=== PATIENT | male | born 1970 | race Caucasian/White ===

== ENCOUNTER 2019-07-24 08:38 | Observation (INO) | payer MEDICARE, OTHER ==
[~2019-07-24] VITALS: Ht 188 cm; Wt 64.5 kg
[2019-07-24 15:50] LABS: Calcium, Ionized (POC) 1.17 mmol/L (1.10-1.46); Chloride (POC) 93 mmol/L (98-108); Creatinine (POC) 4.2 mg/dL (0.8-1.3); Glucose (ISTAT POC) 106 mg/dL (70-99); Hemoglobin (POC) 15.3 g/dL (13.5-17.5); Potassium (POC) 3.5 mmol/L (3.5-5.5); Sodium (POC) 130 mmol/L (135-148); Total CO2 (POC) 29 mmol/L (21-32)
--- NOTE | 2019-07-24 18:40 | NUR ---
PT TO RECOVERY ROOM POST PROCEDURE IN RECLINER. PT IS AWAKE AND CONVERSING, REPORTS HE IS COMFORTABLE. MONITOR SR 80'S, B/P 160/77, AFEBRILE, SPO2 99-100% RA. L UPPER ARM FISTULA: POSITIVE THRILL, NO SWELLING/HEMATOMA, PURSE STRINGS AND TEGADERM INTACT.
--- NOTE | 2019-07-24 19:31 | NUR ---
DR HALE HERE TO EVALUATE PT.
[2019-07-24 21:42] LABS: Mean Platelet Volume 9.2 fL (9.1-12.4); Platelet Count 211 K/mm3 (150-400)
[2019-07-24 21:57] LABS: International Normalized Ratio 0.97; Prothrombin Time Results 10.3 Sec (9.7-11.5)
--- NOTE | 2019-07-24 23:45 | NUR ---
DIRECT ADMISSION /HEPARIN GTT/SUTURES. PT DIRECT ADMIT HIS SHIFT TODAY AT 1945 FROM [facility]. PT HAD SOME CLOTTING IN HIS LEFT FISULA THAT WAS CLEANED OUT AND STENTED BY DR. JERRY. DR. JERRY AT BEDSIDE THIS SHIFT SHORTLY AFTER PT ARRIVED TO THE UNIT. RECEIVED VERBAL ORDER FROM DR. JERRY TO REMOVE STICHES TO LISS FISTULA, AND TO START HEPARIN DRIP. STICHES WERE REMOVED BY [facility] NURSE. HEPARIN GTT WAS LATE TO START DUE TO DIFFICULTIES OBTAINING BLOOD TO CHECK HIS LEVELS. TWO LAB TECHS ATTEMPTED TO DRAW PT BLOOD, ON THE SECOND ATTEMPT BLOOD WAS COLLECTED BUT CLOTTED, THUS THE SAMPLE COULD NOT BE RAN. OZIEL LEE CLINICAL COORDINATOR NOTIFIED. SHE JEET PT BLOOD FROM THE 20G IV IN HIS ARM, AND SAMPLE WAS SENT. WHEN RESULTS RETURNED HEPARIN WAS SENT AND INITIATED. ADMISSION AND ASSESSMENT COMPLETE. FISTULA WITH PALPABLE STRONG PULSE TO LISS. PT DENIES ANY N/T IN LEFT ARM. PLAN IS HEAPRIN GTT AND DIALYSIS TOMORROW. MED REC IS INCOMPLETE AT THIS TIME. PT HAS NO MEDICATION LIST AND DOES NOT KNOW WHAT HE TAKES. HE STATES A LIST SHOULD HAVE BEEN FAXED TO THE ER. I CALLED TO CHECK IF THEY HAD LIST AND THEY DID NOT. WILL NOTIFY FRANTZ RN FOR FOLLOW UP. -
--- NOTE | 2019-07-25 04:45 | NUR ---
LAB DRAW REFUSAL FOR HEPARIN GTT PT REFUSING LAB DRAWS FOR HEPARIN GTT AND STATES HE DOES NOT WANT TO BE POKED ANYMORE. PHARMACY NOTIFIED OF PT REFUSAL AND STATES OK TO KEEP HEPARIN GTT GOING UNTIL 0600. CALL PLACED TO DR. ÁNGEL JERRY TO NOTIFY, AWAITING CALL BACK AT THIS TIME.
--- NOTE | 2019-07-25 05:03 | NUR ---
SHIFT SUMMARY PT ER ADMIT THIS SHIFT. PT A/OX4, INDEPENDENT AND AMBULATORY IN THE ROOM. VITALS STABLE. PT IS IRRITABLE AND HAS BEEN REFUSING ASPECTS OF PT CARE. HEPARIN GTT INITIATED PER ORDERS, PT IS A DIFFICULT START AND IS NOW REFUSING TO HAVE HIS LABS DRAWN THIS AM TO MONITOR HIS LEVELS FOR GTT. CALL PLACED TO DR. JERRY ANS SERVICE TO NOTIFY HIM OF PT REFUSAL, AWAITING A CALL BACK AT THIS TIME. PHARMACY NOTIFED OF PT REFUSAL FOR LABS. ABBY ERNST PHARMACIST STATES IT WILL BE OK TO KEEP GTT GOING UNTIL 0600, BUT TO DC AFTER. PLAN IS FOR HD TODAY AND THEN DISCHARGE. ADMISSION COMPLETE WITH THE EXCEPTION OF MEDS. BED IN LOWEST POSITION, CALL LIGHT WITHIN REACH. WILL CONTINUE TO MONITOR AND REPORT TO ONCOMING RN.
--- NOTE | 2019-07-25 06:07 | NUR ---
HEPARIN GTT NO CALL BACK FROM DR. JERRY AT THIS TIME. SPOKE WITH PHARMACIST ABBY ERNST, WHO STATES OK TO LEAVE HEAPRIN GTT GOING UNTIL WE HEAR FROM DR. JERRY REGARDING PT REFUSAL FOR LAB DRAWS.
--- NOTE | 2019-07-25 07:07 | NUR ---
HEPARIN GTT DR. JERRY DID NOT RETURN MY CALL. PER PHARMACY CONTINUE HEPARIN GTT. FRANTZ DEGROOT NOTIFIED OF HEPARIN GTT INFUSING AND WILL FOLLOW UP WITH ÁNGEL JERRY AND PHARMACY REGARDING THIS.
[2019-07-25 09:32] LABS: Hematocrit 35.9 % (37.0-53.0); Hemoglobin 12.4 g/dL (13.5-17.5); Mean Corpuscular HGB 30.2 pg (26.0-34.0); Mean Corpuscular HGB Conc 34.5 g/dL (31.5-36.5); Mean Corpuscular Volume 88 fL (80-100); Mean Platelet Volume 9.9 fL (9.1-12.4); Platelet Count 248 K/mm3 (150-400); RDW Coefficient Variation 14.2 % (11.7-14.2); RDW Standard Deviation 45.1 fL (35.1-46.3); White Blood Cell Count 7.76 K/mm3 (4.00-11.30)
[2019-07-25 09:47] LABS: Albumin, Blood 2.9 g/dL (3.4-5.0); Anion Gap 11 mmol/L (6-16); Blood Urea Nitrogen 36 mg/dL (8-24); Bun/Creatinine Ratio 7.5 (12.0-20.0); CO2, Blood 23 mmol/L (21-32); Calcium, Blood 8.8 mg/dL (8.5-10.1); Chloride, Blood 97 mmol/L (98-108); Creatinine, Blood 4.78 mg/dL (0.60-1.20); Glomerular Filtration Rate 14 (60-); Glucose, Blood 137 mg/dL (70-99); Magnesium, Blood 2.3 mg/dL (1.6-2.4); Potassium, Blood 3.9 mmol/L (3.5-5.5); Sodium, Blood 131 mmol/L (136-145)
[2019-07-25] MEDS ORDERED: ACET325 PO (11:15)
[2019-07-25] MEDS ORDERED: HUMALOG KW200 UNIT/1 SC (11:18)
[2019-07-25] MEDS ORDERED: MELA3 PO (11:19)
[2019-07-25] MEDS ORDERED: ONDA4ODT MM (11:20)
--- NOTE | 2019-07-25 12:13 | NUR ---
PT DISCHARGED TO HOME. PT INDEPENDENT IN ROOM PRIOR TO DISCHARGE. PT PROVIDED WITH DISCHARGE INSTRUCTIONS AND MEDICATION EDUCATION. PT VERBALIZED UNDERSTANDING. IV REMOVED PRIOR TO PT DISCHARGE. BLOOD GLUCOSE CHECKED PRIOR TO PT DISCHARGE, 110. PT AMBULATED OFF UNIT, DENYING NEED FOR WHEELCHAIR.
== END 2019-07-25 12:05 | disposition home or self-care (01) ==
LOC: ER 08:38 → SURS 08:39 → MEDS 08:39 → ENPENDDIS 07-25 10:19 → MEDS 07-25 12:05
PROVIDERS: Physician Assistant; Radiology Diagnostic Radiology; ADMIT Family Medicine
DX: T82.590A Other mechanical complication of surgically created arteriovenous fistula, initial encounter (principal); E11.22 Type 2 diabetes mellitus with diabetic chronic kidney disease; N18.6 End stage renal disease; R51 Headache; F12.20 Cannabis dependence, uncomplicated; E11.43 Type 2 diabetes mellitus with diabetic autonomic (poly)neuropathy; K31.84 Gastroparesis; Z99.2 Dependence on renal dialysis; Z87.891 Personal history of nicotine dependence
CPT/HCPCS: 36415; 36906; 80047; 80069; 82947; 83036; 83735; 85014; 85027; 85049; 85610; 85730; 93990; 96374; 99152; 99153; 99284-25; C1725; C1769; C1876; C1894; G0257; G0378; J1644; J2250; J3010; J7030; J7040; Q9967

== ENCOUNTER 2019-08-18 11:00 | Day surgery (SDC) | payer MEDICARE, OTHER ==
[~2019-08-18] VITALS: Ht 182.9 cm; Wt 66.8 kg
[~2019-08-18 11:00] MED LIST: ACET325 PO; HUMALOG KW200 UNIT/1 SC; MELA3 PO; ONDA4ODT MM
[2019-08-18] MEDS ORDERED: CLOP75 PO (11:47)
[2019-08-18] MEDS ORDERED: FURO20 PO (11:48)
[2019-08-18] MEDS ORDERED: SERT25 PO (11:48)
[2019-08-18] MEDS ORDERED: INSULANPEN SC (11:49)
--- NOTE | 2019-08-18 15:30 | NUR ---
PT REPORTS FEELING SHAKEY. CBG WAS 48. PT GIVEN GRAMCRACKERS, CHEESE AND TWO ORANGE JUCIES. PT REEVALUATED AFTER 15MINS. PT STATES THAT HE IS FEELING MUCH BETTER. CBG RECHECKED- WAS 50. PT DRANK ONE MORE ORANGE JUICE. PT STATES THAT HE IS READY TO BE DCD TO GO TO DIALYSIS. PT EDUCATED ON TALKING WITH RN AT [facility]. PT AGREES WITH PLAN. PT ALSO STATES HE WILL PICK SOMETHING UP TO EAT ON HIS WAY TO [facility]. PT APPEARS TO BE IN NO ACUTE DISTRESS AND IS WELL EDUCATED ON HIS SUGAR LEVELS.
--- NOTE | 2019-08-18 15:45 | NUR ---
PT AMBULATES TO RESTROOM WITH NO COMPLICATIONS. IV DCD WITH CATH IN TACT. PT TO GO STRAIGHT TO [facility] FROM RECOVERY ROOM. NEW STENT PLACED IN FISTULA. PT REMINDED TO KEEP TAKING PLAVIX EVERY DAY. PT STATES HIS UNDERSTANDING AND REPORTS THAT HE WILL TAKE HIS PLAVIX. PT IS GOING TO HAVE HIS PURSE SUTURES REMOVED AT DR. Barclay OFFICE ON SUNDAY. PT DENIES ANY QUESTIONS OR CONCERNS UPON DISCHARGE. PT TAKEN TO HIS RIDE VIA WHEELCHAIR BY RN.
== END 2019-08-18 15:45 | disposition home or self-care (01) ==
LOC: MHTC 11:00
DX: T82.868A Thrombosis due to vascular prosthetic devices, implants and grafts, initial encounter (principal); E10.22 Type 1 diabetes mellitus with diabetic chronic kidney disease; N18.6 End stage renal disease; Z87.891 Personal history of nicotine dependence; Y83.2 Surgical operation with anastomosis, bypass or graft as the cause of abnormal reaction of the patient, or of later complication, without mention of misadventure at the time of the procedure; Z79.02 Long term (current) use of antithrombotics/antiplatelets; Z99.2 Dependence on renal dialysis
CPT/HCPCS: 82947; 99152; 99153; C1725; C1769; C1876; C1887; C1894; J1644; J2250; J2997; J3010; J7030; Q9967

== ENCOUNTER 2021-11-10 18:26 | Emergency (ER) | payer MEDICARE, OTHER ==
[~2021-11-10] VITALS: Ht 188 cm; Wt 63.0 kg
[~2021-11-10 18:26] MED LIST changes: +CLOP75 PO; +FURO20 PO; +INSULANPEN SC; +SERT25 PO
[2021-11-10 19:12] LABS: BASOPHILS ABSOLUTE AUTO 0.09 K/mm3 (0.00-0.23); BASOPHILS PERCENT AUTO 1 % (0-2); EOSINOPHILS ABSOLUTE AUTO 0.08 K/mm3 (0.00-0.68); EOSINOPHILS PERCENT AUTO 1 % (0-6); Hematocrit 41.6 % (37.0-53.0); Hemoglobin 14.2 g/dL (13.5-17.5); IMMATURE GRAN ABSOLUTE AUTO 0.03 K/mm3 (0.00-0.10); IMMATURE GRAN PERCENT AUTO 0 % (0-1); LYMPHOCYTES ABSOLUTE AUTO 0.68 K/mm3 (0.84-5.20); LYMPHOCYTES PERCENT AUTO 8 % (21-46); MONOCYTES ABSOLUTE AUTO 0.35 K/mm3 (0.16-1.47); MONOCYTES PERCENT AUTO 4 % (4-13); Mean Corpuscular HGB 29.2 pg (26.0-34.0); Mean Corpuscular HGB Conc 34.1 g/dL (31.5-36.5); Mean Corpuscular Volume 86 fL (80-100); Mean Platelet Volume 10.7 fL (9.1-12.4); NEUTROPHILS ABSOLUTE AUTO 6.99 K/mm3 (1.96-9.15); NEUTROPHILS PERCENT AUTO 85 % (41-73); Platelet Count 238 K/mm3 (150-400); RDW Coefficient Variation 13.9 % (11.7-14.2); RDW Standard Deviation 43.6 fL (35.1-46.3); Red Blood Cell Count 4.86 M/mm3 (4.30-5.90); White Blood Cell Count 8.22 K/mm3 (4.00-11.30)
[2021-11-10 19:19] LABS: Albumin, Blood 3.8 g/dL (3.4-5.0); Bilirubin, Total 0.8 mg/dL (0.1-1.0); Bun/Creatinine Ratio 9.9 (12.0-20.0); Calcium, Blood 8.9 mg/dL (8.5-10.1); Creatinine, Blood 5.78 mg/dL (0.60-1.20); Potassium, Blood 3.4 mmol/L (3.5-5.5); Total Protein, Blood 7.8 g/dL (6.4-8.2)
== END 2021-11-10 22:27 | disposition home or self-care (01) ==
LOC: ER 18:26
PROVIDERS: Physician Assistant
DX: K31.84 Gastroparesis (principal); E10.22 Type 1 diabetes mellitus with diabetic chronic kidney disease; N18.9 Chronic kidney disease, unspecified; Z79.4 Long term (current) use of insulin; Z79.899 Other long term (current) drug therapy
CPT/HCPCS: 36415; 80053; 83690; 85025; 96374; 96375; 99284-25; J1200; J1790; J2405; J7030

== ENCOUNTER 2021-12-02 00:21 | Day surgery (SDC) | payer MEDICARE, OTHER | END 2021-12-02 23:54 | disposition home or self-care (01) | LOC: WOUND 00:21 | DX: E10.621 Type 1 diabetes mellitus with foot ulcer (principal); L97.522 Non-pressure chronic ulcer of other part of left foot with fat layer exposed; L97.512 Non-pressure chronic ulcer of other part of right foot with fat layer exposed; E10.622 Type 1 diabetes mellitus with other skin ulcer; L98.499 Non-pressure chronic ulcer of skin of other sites with unspecified severity; E10.59 Type 1 diabetes mellitus with other circulatory complications; E10.22 Type 1 diabetes mellitus with diabetic chronic kidney disease; N18.6 End stage renal disease; E10.40 Type 1 diabetes mellitus with diabetic neuropathy, unspecified; Z99.2 Dependence on renal dialysis; Z87.891 Personal history of nicotine dependence | CPT/HCPCS: A9270; G0463 ==

== ENCOUNTER 2021-12-20 04:57 | Day surgery (SDC) | payer MEDICARE, OTHER | END 2021-12-20 23:50 | disposition home or self-care (01) | LOC: WOUND 04:57 | DX: E10.621 Type 1 diabetes mellitus with foot ulcer (principal); L97.529 Non-pressure chronic ulcer of other part of left foot with unspecified severity; L97.519 Non-pressure chronic ulcer of other part of right foot with unspecified severity; Z99.2 Dependence on renal dialysis | CPT/HCPCS: G0463 ==

== ENCOUNTER 2022-07-13 15:08 | Observation (INO) | payer MEDICARE, OTHER ==
[~2022-07-13] VITALS: Ht 188 cm; Wt 67.3 kg
[2022-07-13 16:00] LABS: Hematocrit 42.5 % (37.0-53.0); Hemoglobin 13.9 g/dL (13.5-17.5); Mean Corpuscular HGB 29.1 pg (26.0-34.0); Mean Corpuscular HGB Conc 32.7 g/dL (31.5-36.5); Mean Corpuscular Volume 89 fL (80-100); Mean Platelet Volume 10.5 fL (9.1-12.4); Platelet Count 217 K/mm3 (150-400); RDW Coefficient Variation 15.3 % (11.7-14.2); RDW Standard Deviation 50.2 fL (35.1-46.3); Red Blood Cell Count 4.77 M/mm3 (4.30-5.90); White Blood Cell Count 20.19 K/mm3 (4.00-11.30)
[2022-07-13 16:04] LABS: Albumin, Blood 3.1 g/dL (3.4-5.0); Albumin/Globulin Ratio 0.8 (0.8-1.8); Bilirubin, Total 0.4 mg/dL (0.1-1.0); Bun/Creatinine Ratio 6.8 (12.0-20.0); Calcium, Blood 9.8 mg/dL (8.5-10.1); Creatinine, Blood 8.63 mg/dL (0.60-1.20); Globulin, Blood 3.8 g/dL (2.2-4.0); Potassium, Blood 3.9 mmol/L (3.5-5.5); Total Protein, Blood 6.9 g/dL (6.4-8.2)
[2022-07-13] MEDS ORDERED: MIRT15ST PO (16:04)
[2022-07-13] MEDS ORDERED: FURO80 PO (16:04)
[2022-07-13] MEDS ORDERED: METO10SY (16:05)
[2022-07-13] MEDS ORDERED: LOSA25 PO (16:06)
[2022-07-13] MEDS ORDERED: PRAV20 PO (16:06)
[2022-07-13 16:35] LABS: BAND PERCENT MAN 3 % (0-8); BASOPHILS PERCENT MAN 0 % (0-2); EOSINOPHILS ABSOLUTE MAN 2.22 K/mm3 (0.00-0.68); EOSINOPHILS PERCENT MAN 11 % (0-6); LYMPHOCYTES ABSOLUTE MAN 2.22 K/mm3 (0.84-5.20); LYMPHOCYTES PERCENT MAN 11 % (21-46); METAMYELOCYTE PERCENT MAN 1 % (0-0); MONOCYTES ABSOLUTE MAN 1.81 K/mm3 (0.16-1.47); MONOCYTES PERCENT MAN 9 % (4-13); MYELOCYTE PERCENT MAN 1 % (0-0); NEUTROPHILS ABSOLUTE MAN 13.52 K/mm3 (1.96-9.15); SEG NEUTROPHILS PERCENT MAN 64 % (41-73); TOTAL CELLS COUNTED 100
--- NOTE | 2022-07-13 20:30 | NUR ---
PT TRANSFERED TO ICU VIA BED WITH IV INSULIN AT 10ML/HR BY RN. PT ALERT ORIENTED AT THIS TIME. PT PIVOT TRANSFERRED TO ICU BED. PERSONAL BELONGINGS INCLUDE INSULIN PUMP WHICH IS NOT ON AT THIS TIME AND WALKER. PT HAS BOOT ON RIGHT FOOT AND WILL NOT LET RN UNDO DRESSING TO ASSESS. CALL LIGHT WITHIN REACH.
[2022-07-13 21:45] LABS: Bun/Creatinine Ratio 7.2 (12.0-20.0); Calcium, Blood 8.8 mg/dL (8.5-10.1); Creatinine, Blood 8.56 mg/dL (0.60-1.20); Potassium, Blood 4.2 mmol/L (3.5-5.5)
[2022-07-13 22:32] LABS: Source, Urine Clean Catch
[2022-07-13 22:34] LABS: Bilirubin, Urine Neg (Neg); Blood, Urine 1+ (Neg); Glucose Qualitative, Urine 4+ (Neg); Ketones, Urine 2+ (Neg); Leukocyte Esterase, Urine Neg (Neg); Nitrite, Urine Neg (Neg); Protein, Urine 3+ (Neg); Urobilinogen, Urine NORM (Normal)
[2022-07-13 22:48] LABS: Appearance, Urine Clear (Clear); Color, Urine Yellow (P-Yellow)
[2022-07-13 22:49] LABS: Amorphous Light (0-Heavy); Bacteria Rare /hpf; Red Blood Cells, Urine 0-2 /hpf (0-2); Squamous Epithelial Cells Rare /hpf (Few); White Blood Cells, Urine 0-2 /hpf (0-5)
[2022-07-14 04:10] LABS: Hematocrit 37.4 % (37.0-53.0)
[2022-07-14 04:39] LABS: Magnesium, Blood 2.9 mg/dL (1.6-2.4)
[2022-07-14 04:41] LABS: Albumin, Blood 2.4 g/dL (3.4-5.0); Albumin/Globulin Ratio 0.7 (0.8-1.8); Bilirubin, Total 0.5 mg/dL (0.1-1.0); Bun/Creatinine Ratio 7.4 (12.0-20.0); Calcium, Blood 8.7 mg/dL (8.5-10.1); Creatinine, Blood 8.67 mg/dL (0.60-1.20); Globulin, Blood 3.3 g/dL (2.2-4.0); Phosphorus, Blood 5.4 mg/dL (2.5-4.9); Potassium, Blood 4.1 mmol/L (3.5-5.5); Total Protein, Blood 5.7 g/dL (6.4-8.2)
--- NOTE | 2022-07-14 05:59 | NUR ---
PT ARRIVED TO ICU AT 2022. HOURLY GLUCOSE CHECKS, INSULIN OFF FROM 0100 TO 0545. INSULIN DRIP AT 1, D5 1/2NS AT 100ML/HR FOR A TOTAL OF 1.5L. DR. HALE CONSULTED LAST NIGHT AND UPDATED AGAIN THIS MORNING WITH MOST RECENT LABS. PT HAS R FOOT WOUND/BOOT AND WOULD NOT LET RN UNDO DRESSING TO FULLY ASSESS. PT GIVEN ROXICODONE ONE TIME OVER NIGHT FOR BACK AND FOOT PAIN. PT REFUSED REGLAN. URINALYSIS SENT TO LAB.
--- NOTE | 2022-07-14 09:58 | NUR ---
PT RESTING IN BED. A/O X4, WITHDRAWN. PREFERS TO KEEP HIS CLOTHES ON AND WILL NOT ALLOW STAFF TO LOOK AT FOOT THAT HAS DRESSING. ON INSULIN GTT THAT WILL BE STOPPING SOON. DR. DAVIDSON ORDERED LONG ACTING INSULIN AND TO TURN INSULIN GTT OFF ONE HOUR AFTER. PT PICKING AT MEAL TRAY, NO NAUSEA AT THE MOMENT. WILL BE GETTING DIALYSIS TODAY THEN MIGHT GET TO GO HOME. NO SIGN OF DISTRESS.
[2022-07-14] MEDS ORDERED: OXYC5 PO (15:09)
--- NOTE | 2022-07-14 18:40 | NUR ---
SUMMARY PT RESTING IN BED. A/O X4. OFF INSULIN GTT THIS AM AND TRANSITIONED TO LONG ACTING AND HUMALOG. PT TOLERATING MEALS, NO N/V. HAD DIALYSIS TODAY AND DR. DAVIDSON WROTE D/C ORDERS. PT IS READY TO GO HOME JUST WAITING ON A RIDE TO COME GET HIM. ALL BELONGINGS INCLUDING INSULIN PUMP RETURNED TO PT. NO SIGN OF DISTESS.
== END 2022-07-14 19:45 | disposition home or self-care (01) ==
LOC: ER 15:08 → ICUW 15:09 → ER 19:02 → ICUW 20:15
PROVIDERS: Internal Medicine Nephrology; Student in an Organized Health Care Education/Training Program; ADMIT Hospitalist
DX: E10.10 Type 1 diabetes mellitus with ketoacidosis without coma (principal); E10.22 Type 1 diabetes mellitus with diabetic chronic kidney disease; N18.6 End stage renal disease; E87.1 Hypo-osmolality and hyponatremia; E86.9 Volume depletion, unspecified; E88.09 Other disorders of plasma-protein metabolism, not elsewhere classified; D72.829 Elevated white blood cell count, unspecified; R74.01 Elevation of levels of liver transaminase levels; D64.9 Anemia, unspecified; Z99.2 Dependence on renal dialysis; Z88.8 Allergy status to other drugs, medicaments and biological substances; Z88.2 Allergy status to sulfonamides; Z88.1 Allergy status to other antibiotic agents; Z79.4 Long term (current) use of insulin; Z79.02 Long term (current) use of antithrombotics/antiplatelets; Z96.41 Presence of insulin pump (external) (internal); Z87.891 Personal history of nicotine dependence
CPT/HCPCS: 36415; 71045; 80048; 80053; 81001; 82947; 83735; 84100; 85014; 85018; 85025; 93005; 93010; 96360; 96361; 99285-25; A9270; G0378; J1815; J2405; J7030; J7042

== ENCOUNTER 2022-08-23 00:49 | Day surgery (SDC) | payer MEDICARE, OTHER ==
[~2022-08-23 00:49] MED LIST changes: +FURO80 PO; +LOSA25 PO; +METO10SY; +MIRT15ST PO; +OXYC5 PO; +PRAV20 PO
== END 2022-08-23 23:09 | disposition home or self-care (01) ==
LOC: WOUND 00:49
DX: E10.622 Type 1 diabetes mellitus with other skin ulcer (principal); I87.311 Chronic venous hypertension (idiopathic) with ulcer of right lower extremity; L97.813 Non-pressure chronic ulcer of other part of right lower leg with necrosis of muscle; E10.43 Type 1 diabetes mellitus with diabetic autonomic (poly)neuropathy; E10.22 Type 1 diabetes mellitus with diabetic chronic kidney disease; I12.0 Hypertensive chronic kidney disease with stage 5 chronic kidney disease or end stage renal disease; N18.6 End stage renal disease; Z79.4 Long term (current) use of insulin; Z99.2 Dependence on renal dialysis; Z87.891 Personal history of nicotine dependence
CPT/HCPCS: A9270; G0463

== ENCOUNTER 2022-08-25 00:11 | Day surgery (SDC) | payer MEDICARE, OTHER | END 2022-08-25 22:47 | disposition home or self-care (01) | LOC: WOUND 00:11 | DX: E10.622 Type 1 diabetes mellitus with other skin ulcer (principal); I87.311 Chronic venous hypertension (idiopathic) with ulcer of right lower extremity; L97.813 Non-pressure chronic ulcer of other part of right lower leg with necrosis of muscle; E10.43 Type 1 diabetes mellitus with diabetic autonomic (poly)neuropathy ==

== ENCOUNTER 2022-08-30 01:53 | Day surgery (SDC) | payer MEDICARE, OTHER | END 2022-08-30 23:06 | disposition home or self-care (01) | LOC: WOUND 01:53 | DX: E10.622 Type 1 diabetes mellitus with other skin ulcer (principal); L97.813 Non-pressure chronic ulcer of other part of right lower leg with necrosis of muscle; E10.43 Type 1 diabetes mellitus with diabetic autonomic (poly)neuropathy; Z79.4 Long term (current) use of insulin; I87.311 Chronic venous hypertension (idiopathic) with ulcer of right lower extremity | CPT/HCPCS: A9270 ==

== ENCOUNTER 2022-09-04 01:12 | Day surgery (SDC) | payer MEDICARE, OTHER | END 2022-09-04 23:31 | disposition home or self-care (01) | LOC: WOUND 01:12 | DX: E10.622 Type 1 diabetes mellitus with other skin ulcer (principal); L97.813 Non-pressure chronic ulcer of other part of right lower leg with necrosis of muscle; E10.43 Type 1 diabetes mellitus with diabetic autonomic (poly)neuropathy; I87.311 Chronic venous hypertension (idiopathic) with ulcer of right lower extremity ==

== ENCOUNTER 2022-09-06 01:46 | Day surgery (SDC) | payer MEDICARE, OTHER | END 2022-09-06 23:00 | disposition home or self-care (01) | LOC: WOUND 01:46 | DX: E10.622 Type 1 diabetes mellitus with other skin ulcer (principal); L97.813 Non-pressure chronic ulcer of other part of right lower leg with necrosis of muscle; I87.311 Chronic venous hypertension (idiopathic) with ulcer of right lower extremity; E10.22 Type 1 diabetes mellitus with diabetic chronic kidney disease; N18.6 End stage renal disease; Z99.2 Dependence on renal dialysis; E10.43 Type 1 diabetes mellitus with diabetic autonomic (poly)neuropathy | CPT/HCPCS: A9270 ==

== ENCOUNTER 2022-09-08 01:52 | Day surgery (SDC) | payer MEDICARE, OTHER | END 2022-09-08 22:51 | disposition home or self-care (01) | LOC: WOUND 01:52 | DX: E10.622 Type 1 diabetes mellitus with other skin ulcer (principal); L97.813 Non-pressure chronic ulcer of other part of right lower leg with necrosis of muscle; E10.43 Type 1 diabetes mellitus with diabetic autonomic (poly)neuropathy; I87.311 Chronic venous hypertension (idiopathic) with ulcer of right lower extremity ==

== ENCOUNTER 2022-09-13 05:59 | Day surgery (SDC) | payer MEDICARE, OTHER | END 2022-09-13 22:59 | disposition home or self-care (01) | LOC: WOUND 05:59 | DX: E10.622 Type 1 diabetes mellitus with other skin ulcer (principal); E10.40 Type 1 diabetes mellitus with diabetic neuropathy, unspecified; Z79.4 Long term (current) use of insulin; I87.2 Venous insufficiency (chronic) (peripheral); I87.311 Chronic venous hypertension (idiopathic) with ulcer of right lower extremity; L97.813 Non-pressure chronic ulcer of other part of right lower leg with necrosis of muscle | CPT/HCPCS: G0463 ==

== ENCOUNTER 2022-09-15 00:40 | Day surgery (SDC) | payer MEDICARE, OTHER | END 2022-09-15 23:04 | disposition home or self-care (01) | LOC: WOUND 00:40 | DX: E10.622 Type 1 diabetes mellitus with other skin ulcer (principal); I87.311 Chronic venous hypertension (idiopathic) with ulcer of right lower extremity; L97.813 Non-pressure chronic ulcer of other part of right lower leg with necrosis of muscle; E10.43 Type 1 diabetes mellitus with diabetic autonomic (poly)neuropathy | CPT/HCPCS: G0463 ==

== ENCOUNTER 2022-09-20 01:47 | Day surgery (SDC) | payer MEDICARE, OTHER | END 2022-09-20 22:49 | disposition home or self-care (01) | LOC: WOUND 01:47 | DX: E10.622 Type 1 diabetes mellitus with other skin ulcer (principal); L97.812 Non-pressure chronic ulcer of other part of right lower leg with fat layer exposed; E10.43 Type 1 diabetes mellitus with diabetic autonomic (poly)neuropathy; I87.311 Chronic venous hypertension (idiopathic) with ulcer of right lower extremity | CPT/HCPCS: A9270 ==

== ENCOUNTER 2022-10-06 00:21 | Day surgery (SDC) | payer MEDICARE, OTHER | END 2022-10-06 23:29 | disposition home or self-care (01) | LOC: WOUND 00:21 | DX: E10.622 Type 1 diabetes mellitus with other skin ulcer (principal); I87.311 Chronic venous hypertension (idiopathic) with ulcer of right lower extremity; L97.315 Non-pressure chronic ulcer of right ankle with muscle involvement without evidence of necrosis; L97.813 Non-pressure chronic ulcer of other part of right lower leg with necrosis of muscle; E10.43 Type 1 diabetes mellitus with diabetic autonomic (poly)neuropathy | CPT/HCPCS: A9270; G0463 ==

== ENCOUNTER 2022-10-20 03:13 | Day surgery (SDC) | payer MEDICARE, OTHER | END 2022-10-20 22:57 | disposition home or self-care (01) | LOC: WOUND 03:13 | DX: E10.621 Type 1 diabetes mellitus with foot ulcer (principal); L97.512 Non-pressure chronic ulcer of other part of right foot with fat layer exposed; L97.529 Non-pressure chronic ulcer of other part of left foot with unspecified severity; E10.43 Type 1 diabetes mellitus with diabetic autonomic (poly)neuropathy; I87.311 Chronic venous hypertension (idiopathic) with ulcer of right lower extremity | CPT/HCPCS: G0463 ==

== ENCOUNTER 2023-08-20 16:33 | Emergency (ER) | payer MEDICARE, OTHER ==
[~2023-08-20] VITALS: Ht 182.9 cm; Wt 70.3 kg
[2023-08-20] MEDS ORDERED: CALC.25 PO (17:51)
[2023-08-20 17:57] LABS: BASOPHILS ABSOLUTE AUTO 0.06 K/mm3 (0.00-0.23); BASOPHILS PERCENT AUTO 1 % (0-2); EOSINOPHILS ABSOLUTE AUTO 0.07 K/mm3 (0.00-0.68); EOSINOPHILS PERCENT AUTO 1 % (0-6); Hematocrit 28.9 % (37.0-53.0); Hemoglobin 10.2 g/dL (13.5-17.5); IMMATURE GRAN ABSOLUTE AUTO 0.04 K/mm3 (0.00-0.10); IMMATURE GRAN PERCENT AUTO 0 % (0-1); LYMPHOCYTES ABSOLUTE AUTO 1.85 K/mm3 (0.84-5.20); LYMPHOCYTES PERCENT AUTO 20 % (21-46); MONOCYTES ABSOLUTE AUTO 0.88 K/mm3 (0.16-1.47); MONOCYTES PERCENT AUTO 10 % (4-13); Mean Corpuscular HGB 31.9 pg (26.0-34.0); Mean Corpuscular HGB Conc 35.3 g/dL (31.5-36.5); Mean Corpuscular Volume 90 fL (80-100); Mean Platelet Volume 10.9 fL (9.1-12.4); NEUTROPHILS ABSOLUTE AUTO 6.32 K/mm3 (1.96-9.15); NEUTROPHILS PERCENT AUTO 69 % (41-73); Platelet Count 197 K/mm3 (150-400); RDW Coefficient Variation 14.7 % (11.7-14.2); RDW Standard Deviation 48.1 fL (35.1-46.3); White Blood Cell Count 9.22 K/mm3 (4.00-11.30)
[2023-08-20 18:14] LABS: Magnesium, Blood 2.5 mg/dL (1.6-2.4)
[2023-08-20 18:29] LABS: Albumin, Blood 3.1 g/dL (3.4-5.0); Albumin/Globulin Ratio 0.8 (0.8-1.8); Bilirubin, Total 0.5 mg/dL (0.1-1.0); Bun/Creatinine Ratio 5.7 (12.0-20.0); Calcium, Blood 9.1 mg/dL (8.5-10.1); Creatinine, Blood 9.97 mg/dL (0.60-1.20); Globulin, Blood 3.7 g/dL (2.2-4.0); Potassium, Blood 3.7 mmol/L (3.5-5.5); Total Protein, Blood 6.8 g/dL (6.4-8.2)
[2023-08-20 21:01] VITALS: BP 174/83
[2023-08-20 21:13] LABS: Source, Urine Clean Catch
[2023-08-20 21:16] LABS: Bilirubin, Urine Neg (Neg); Blood, Urine 4+ (Neg); Glucose Qualitative, Urine Neg (Neg); Ketones, Urine Neg (Neg); Leukocyte Esterase, Urine 1+ (Neg); Nitrite, Urine Neg (Neg); Protein, Urine 4+ (Neg); Urobilinogen, Urine NORM (Normal)
[2023-08-20 21:28] LABS: Appearance, Urine Clear (Clear); Color, Urine Yellow (P-Yellow)
[2023-08-20 21:30] LABS: Amorphous Light (0-Heavy); Bacteria Few /hpf; Squamous Epithelial Cells Few /hpf (Few)
[2023-08-20 21:31] LABS: U Amphetamine Screen Not Detected; U Barbituate Screen Not Detected; U Benzodiazapine Screen Not Detected; U Buprenorphine Screen Not Detected; U Cannabinoids Screen DETECTED; U Cocaine Screen Not Detected; U Methadone Screen Not Detected; U Methamphetamine Screen Not Detected; U Opiates Screen Not Detected; U Oxycodone Screen Not Detected; U Phencyclidine Screen Not Detected; U Propoxyphene Screen Not Detected
== END 2023-08-20 22:10 | disposition home or self-care (01) ==
LOC: ER 16:33
PROVIDERS: Emergency Medicine
DX: E10.649 Type 1 diabetes mellitus with hypoglycemia without coma (principal); E10.22 Type 1 diabetes mellitus with diabetic chronic kidney disease; N18.9 Chronic kidney disease, unspecified; Z88.1 Allergy status to other antibiotic agents; Z88.2 Allergy status to sulfonamides; Z88.8 Allergy status to other drugs, medicaments and biological substances; Z79.02 Long term (current) use of antithrombotics/antiplatelets; Z79.899 Other long term (current) drug therapy
CPT/HCPCS: 71045; 80053; 81001; 82947; 83735; 85025; 87086; 93005; 93010; 96374; 99285-25; J2405

== ENCOUNTER 2023-08-21 02:28 | Emergency (ER) | payer MEDICARE, OTHER ==
[~2023-08-21] VITALS: Ht 177.8 cm; Wt 79.4 kg
[~2023-08-21 02:28] MED LIST changes: +CALC.25 PO
[2023-08-21 02:31] VITALS: BP 180/99
== END 2023-08-21 03:01 | disposition home or self-care (01) ==
LOC: ER 02:28
DX: R11.0 Nausea (principal); Z88.8 Allergy status to other drugs, medicaments and biological substances; Z88.1 Allergy status to other antibiotic agents; Z88.2 Allergy status to sulfonamides; Z79.899 Other long term (current) drug therapy; Z79.4 Long term (current) use of insulin; E10.43 Type 1 diabetes mellitus with diabetic autonomic (poly)neuropathy; K31.84 Gastroparesis; Z87.891 Personal history of nicotine dependence
CPT/HCPCS: 99284

== ENCOUNTER → 2023-09-24 | Outpatient (CLI) | payer MEDICARE, OTHER ==
[2023-09-24 15:05] LABS: BASOPHILS ABSOLUTE AUTO 0.12 K/mm3 (0.00-0.23); BASOPHILS PERCENT AUTO 2 % (0-2); EOSINOPHILS ABSOLUTE AUTO 0.55 K/mm3 (0.00-0.68); EOSINOPHILS PERCENT AUTO 7 % (0-6); Hematocrit 33.8 % (37.0-53.0); Hemoglobin 11.3 g/dL (13.5-17.5); IMMATURE GRAN ABSOLUTE AUTO 0.04 K/mm3 (0.00-0.10); IMMATURE GRAN PERCENT AUTO 1 % (0-1); LYMPHOCYTES ABSOLUTE AUTO 1.63 K/mm3 (0.84-5.20); LYMPHOCYTES PERCENT AUTO 21 % (21-46); MONOCYTES ABSOLUTE AUTO 0.89 K/mm3 (0.16-1.47); MONOCYTES PERCENT AUTO 11 % (4-13); Mean Corpuscular HGB 32.4 pg (26.0-34.0); Mean Corpuscular HGB Conc 33.4 g/dL (31.5-36.5); Mean Corpuscular Volume 97 fL (80-100); Mean Platelet Volume 11.2 fL (9.1-12.4); NEUTROPHILS ABSOLUTE AUTO 4.64 K/mm3 (1.96-9.15); NEUTROPHILS PERCENT AUTO 59 % (41-73); Platelet Count 227 K/mm3 (150-400); RDW Coefficient Variation 16.5 % (11.7-14.2); RDW Standard Deviation 58.4 fL (35.1-46.3); Red Blood Cell Count 3.49 M/mm3 (4.30-5.90); White Blood Cell Count 7.87 K/mm3 (4.00-11.30)
[2023-09-24 15:30] LABS: International Normalized Ratio 0.97; Prothrombin Time Results 10.2 Sec (9.7-11.5)
[2023-09-24 15:57] LABS: Albumin, Blood 2.8 g/dL (3.4-5.0); Anion Gap 8 mmol/L (6-16); Blood Urea Nitrogen 64 mg/dL (8-24); Bun/Creatinine Ratio 6.9 (12.0-20.0); CO2, Blood 25 mmol/L (21-32); Calcium, Blood 9.3 mg/dL (8.5-10.1); Chloride, Blood 100 mmol/L (98-108); Creatinine, Blood 9.23 mg/dL (0.60-1.20); Glomerular Filtration Rate 6 (60-); Glucose, Blood 151 mg/dL (70-99); Potassium, Blood 6.7 mmol/L (3.5-5.5); Sodium, Blood 133 mmol/L (136-145)
== END | disposition home or self-care (01) ==
LOC: LAB 14:00 → LAB SHORT 14:00
PROVIDERS: Surgery
DX: N18.6 End stage renal disease (principal); I70.261 Atherosclerosis of native arteries of extremities with gangrene, right leg; E08.9 Diabetes mellitus due to underlying condition without complications; L89.619 Pressure ulcer of right heel, unspecified stage; Z96.41 Presence of insulin pump (external) (internal)
CPT/HCPCS: 80069; 85025; 85610